=== PATIENT | female | born 1950 ===

== ENCOUNTER → 2016-12-30 | Outpatient (CLI) | payer OTHER ==
[~2016-12-30] MED LIST: ESCI10TA17 PO
== END | disposition home or self-care (01) ==
LOC: C.PATHSPEC 14:34
PROVIDERS: ATTEND Dentist Oral and Maxillofacial Pathology
DX: K11.6 Mucocele of salivary gland (principal); K11.8 Other diseases of salivary glands

== ENCOUNTER 2017-05-12 10:11 | Emergency (ER) | payer OTHER ==
[~2017-05-12] VITALS: Ht 157.5 cm; Wt 57.4 kg
[2017-05-12 10:14] VITALS: TEMP 36.7; Ht 157.5 cm; Wt 57.4 kg
[2017-05-12 10:45] LABS: URINE APPEARANCE CLOUDY (CLEAR); URINE BILIRUBIN NEG (NEG); URINE COLOR YELLOW; URINE EPITHELIAL CELL AUTO 0-5 /lpf (0-5); URINE NITRITE NEG (NEG); URINE PH >= 9.0 (4.5-7.5); URINE SPECIFIC GRAVITY 1.016 (1.000-1.030); UROBILINOGEN NEG (NEG)
[2017-05-12 10:45] LABS: BASO % 0.5 %; BASO ABS # 0.02 K/uL (0-0.2); COMPLETE YES; EOS % 1.4 %; HEMATOCRIT 41.7 % (37-47); LYMPH % 43.2 %; LYMPH ABS # 1.84 K/uL (1.2-3.4); MEAN CELL VOLUME 85.6 fL (80-100); MEAN CORPUSCULAR HEMOGLOBIN 29.8 pg (25-34); MEAN CORPUSCULAR HGB CONC 34.8 g/dl (32-36); MEAN PLATELET VOLUME 9.8 fL (7.4-10.4); MONO % 4.2 %; NEUT % 50.7 %; PLATELET COUNT 183 K/uL (130-400); RED BLOOD COUNT 4.87 M/uL (4.2-5.4); WHITE BLOOD COUNT 4.26 K/uL (4.8-10.8)
[2017-05-12 10:49] LABS: MANUAL MICROSCOPIC REQUIRED? NO; REVIEW REQ? NO
[2017-05-12 11:05] LABS: ALT/SGPT 25 U/L (12-78); AST/SGOT 19 U/L (15-37); BLOOD UREA NITROGEN 11 mg/dl (7-18); BUN/CREATININE RATIO 21.2 (10-20); CALCIUM 9.1 mg/dl (8.5-10.1); CARBON DIOXIDE 28 mmol/L (21-32); CHLORIDE 103 mmol/L (98-107); CREATININE 0.51 mg/dl (0.60-1.20); GLUCOSE 98 mg/dl (70-99); POTASSIUM 3.7 mmol/L (3.5-5.1); SODIUM 139 mmol/L (136-145)
[2017-05-12 11:08] LABS: ALKALINE PHOSPHATASE 90 U/L (45-117)
--- NOTE | 2017-05-12 11:35 | DIAGNOSTIC IMAGING REPORT ---
Right upper quadrant ultrasound GALLBLADDER-ABD LIMITED CLINICAL HISTORY: rug eval for gallstones pain. Nausea. TECHNIQUE: Ultrasound COMPARISON STUDY: 01/10/2016 FINDINGS: Normal study. Gallbladder is normal. Common bile that measures 5 mm. Liver pancreas and right kidney are unremarkable. No evidence for hydronephrosis. IMPRESSION: Normal study. No change from the prior exam. Electronically signed by: Guillermo Sanders M.D. 05/12/2017 11:33 AM Dictated Date/Time: 05/12/2017 11:31 AM
[2017-05-12] MEDS ORDERED: ESCI10TA17 PO (11:42)
[2017-05-12] MEDS ORDERED: SODIUM CHLORIDE 0.9% 500ML 500 ML IV STA (11:50)
[2017-05-12] MEDS ORDERED: ONDANSETRON INJ 2 MG/ML 2 ML VIAL IV STA (11:50)
[2017-05-12] MEDS ORDERED: KETOROLAC TROMETHAMINE 30 MG/ML VIAL IV STA (11:53)
--- NOTE | 2017-05-12 12:28 | DIAGNOSTIC IMAGING REPORT ---
ABDOMEN AND PELVIS CT WITHOUT CONTRAST CT DOSE: 555.29 mGycm HISTORY: Flank pain right flan k pain eval for stone TECHNIQUE: Multiaxial CT images of the abdomen and pelvis were performed without the use of intravenous and oral contrast according to the standard department stone protocol. COMPARISON STUDY: None. FINDINGS: Minimal dependent basilar atelectasis. Liver is unremarkable in generalized configuration. Possible small right hepatic cyst. Left kidney demonstrates a 6 mm nonobstructing calcification centrally. There is no evidence for left-sided hydronephrosis. Right kidney is negative for hydronephrosis. No evidence for an obstructing urinary tract calculus. The appendix contains an appendicolith but shows no inflammatory change. Bowel pattern is nonobstructive. IMPRESSION: 1. Nonobstructing left renal calcification. 2. No evidence for an obstructing urinary tract calculus. 3. Nonobstructive bowel pattern. 4. No acute process of the appendix. Electronically signed by: Guillermo Sanders M.D. 05/12/2017 12:26 PM Dictated Date/Time: 05/12/2017 12:19 PM
[2017-05-12 12:55] VITALS: BP 134/76; PULSE 72; O2SAT 98
--- NOTE | 2017-05-12 17:38 | EMERGENCY ROOM VISIT NOTE ---
History Report prepared by Jessica: Nuvia Gtz Under the Supervision of: Dr. Puma Etienne M.D. First contact with patient: 10:16 Chief Complaint: ABDOMINAL PAIN Stated Complaint: ABDOMINAL PAIN History of Present Illness The patient is a 66 year old female who presents to the Emergency Room with complaints of worsening upper abdominal pain beginning 2 weeks prior to arrival. She describes the pain as a a sharp cramping sensation. The patient states that she has been experiencing similar abdominal pain intermittently for 8 years now. She notes her pain has not been this severe in the past. 2 days ago she saw her PCP and was told she may have IBS. No testing was done. The patient was started on Lexapro by her PCP. The patient notes she is experiencing nausea. She states she feels constipated but notes her last normal bowel movement was yesterday. The patient states she feels bloated after eating. June of last year the patient had a endoscopy done due to having similar abdominal pain. Her results were normal. She states her gall bladder was not looked at. The patient has no history of abdominal surgery. She denies bloody or black stools, urinary burning or frequency, or blood in the urine. 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 Review of Systems See HPI for pertinent positives & negatives. A total of 10 systems reviewed and were otherwise negative. Past Medical & Surgical Medical Problems: (1) Abdominal pain Family History Patient reports no known family medical history. Social History Smoking Status: Never Smoker Smokeless Tobacco Use: No Marital Status: Housing Status: lives alone Current/Historical Medications Scheduled Escitalopram (Lexapro), 10 MG PO DAILY Allergies Coded Allergies: Aspirin (Unverified Adverse Reaction, Severe, STOMACH PAIN, 05/12/17) Physical Exam Vital Signs Date Time Temp Pulse Resp B/P (MAP) Pulse Ox O2 Delivery O2 Flow Rate FiO2 05/12/17 12:55 72 18 134/76 98 Room Air 05/12/17 11:39 84 18 136/72 96 Room Air 05/12/17 10:14 36.7 97 18 144/87 96 Room Air Physical Exam Constitutional: Vital signs reviewed. Eyes: Pupils are equal round reactive to light. Conjunctiva are noninjected. ENT: Pharynx is clear without erythema or exudate. Mucous membranes are moist. Neck supple without meningeal signs. Respiratory: Clear to auscultation bilaterally. Breath sounds are equal bilaterally. Cardiovascular: Regular rate and rhythm. No rubs or gallops. GI: Soft, nondistended, right upper quadrant tenderness. No Padilla sign. Bowel sounds are present. Musculoskeletal: No peripheral edema. No lower extremity tenderness. Integumentary: No cyanosis. Neurological: The patient is awake and alert. No focal deficits. Psychiatric: Normal affect. Medical Decision & Procedures ER Provider Diagnostic Interpretation: Radiology results as stated below per my review and the radiologist's interpretation: Right upper quadrant ultrasound GALLBLADDER-ABD LIMITED CLINICAL HISTORY: rug eval for gallstones pain. Nausea. TECHNIQUE: Ultrasound COMPARISON STUDY: 01/10/2016 FINDINGS: Normal study. Gallbladder is normal. Common bile that measures 5 mm. Liver pancreas and right kidney are unremarkable. No evidence for hydronephrosis. IMPRESSION: Normal study. No change from the prior exam. Electronically signed by: Guillermo Sanders M.D. 05/12/2017 11:33 AM Dictated Date/Time: 05/12/2017 11:31 AM ABDOMEN AND PELVIS CT WITHOUT CONTRAST CT DOSE: 555.29 mGycm HISTORY: Flank pain right flan k pain eval for stone TECHNIQUE: Multiaxial CT images of the abdomen and pelvis were performed without the use of intravenous and oral contrast according to the standard department stone protocol. COMPARISON STUDY: None. FINDINGS: Minimal dependent basilar atelectasis. Liver is unremarkable in generalized configuration. Possible small right hepatic cyst. Left kidney demonstrates a 6 mm nonobstructing calcification centrally. There is no evidence for left-sided hydronephrosis. Right kidney is negative for hydronephrosis. No evidence for an obstructing urinary tract calculus. The appendix contains an appendicolith but shows no inflammatory change. Bowel pattern is nonobstructive. IMPRESSION: 1. Nonobstructing left renal calcification. 2. No evidence for an obstructing urinary tract calculus. 3. Nonobstructive bowel pattern. 4. No acute process of the appendix. Electronically signed by: Guillermo Sanders M.D. 05/12/2017 12:26 PM Dictated Date/Time: 05/12/2017 12:19 PM Laboratory Results 05/12/17 10:30 Red Blood Count 4.87, Mean Corpuscular Volume 85.6, Mean Corpuscular Hemoglobin 29.8, Mean Corpuscular Hemoglobin Concent 34.8, Mean Platelet Volume 9.8, Neutrophils (%) (Auto) 50.7, Lymphocytes (%) (Auto) 43.2, Monocytes (%) (Auto) 4.2, Eosinophils (%) (Auto) 1.4, Basophils (%) (Auto) 0.5, Neutrophils # (Auto) 2.16, Lymphocytes # (Auto) 1.84, Monocytes # (Auto) 0.18, Eosinophils # (Auto) 0.06, Basophils # (Auto) 0.02 05/12/17 10:30 Test 05/12/17 10:20 05/12/17 10:30 Urine Color YELLOW Urine Appearance CLOUDY (CLEAR) Urine pH >= 9.0 (4.5-7.5) Urine Specific [place] 1.016 (1.000-1.030) Urine Protein NEG (NEG) Urine Glucose (UA) NEG (NEG) Urine Ketones NEG (NEG) Urine Occult Blood NEG (NEG) Urine Nitrite NEG (NEG) Urine Bilirubin NEG (NEG) Urine Urobilinogen NEG (NEG) Urine Leukocyte Esterase NEG (NEG) Urine WBC (Auto) 0 /hpf (0-5) Urine RBC (Auto) 0-4 /hpf (0-4) Urine Hyaline Casts (Auto) 0 /lpf (0-5) Urine Epithelial Cells (Auto) 0-5 /lpf (0-5) Urine Bacteria (Auto) NEG (NEG) White Blood Count 4.26 K/uL (4.8-10.8) Red Blood Count 4.87 M/uL (4.2-5.4) Hemoglobin 14.5 g/dL (12.0-16.0) Hematocrit 41.7 % (37-47) Mean Corpuscular Volume 85.6 fL (80-100) Mean Corpuscular Hemoglobin 29.8 pg (25-34) Mean Corpuscular Hemoglobin Concent 34.8 g/dl (32-36) Platelet Count 183 K/uL (130-400) Mean Platelet Volume 9.8 fL (7.4-10.4) Neutrophils (%) (Auto) 50.7 % Lymphocytes (%) (Auto) 43.2 % Monocytes (%) (Auto) 4.2 % Eosinophils (%) (Auto) 1.4 % Basophils (%) (Auto) 0.5 % Neutrophils # (Auto) 2.16 K/uL (1.4-6.5) Lymphocytes # (Auto) 1.84 K/uL (1.2-3.4) Monocytes # (Auto) 0.18 K/uL (0.11-0.59) Eosinophils # (Auto) 0.06 K/uL (0-0.5) Basophils # (Auto) 0.02 K/uL (0-0.2) RDW Standard Deviation 42.0 fL (36.4-46.3) RDW Coefficient of Variation 13.4 % (11.5-14.5) Immature Granulocyte % (Auto) 0.0 % Immature Granulocyte # (Auto) 0.00 K/uL (0.00-0.02) Anion Gap 8.0 mmol/L (3-11) Est Creatinine Clear Calc Drug Dose 88.2 ml/min Estimated GFR () 117.8 Estimated GFR (Non- 101.6 BUN/Creatinine Ratio 21.2 (10-20) Calcium Level 9.1 mg/dl (8.5-10.1) Total Bilirubin 0.6 mg/dl (0.2-1) Direct Bilirubin < 0.1 mg/dl (0-0.2) Aspartate Amino Transf (AST/SGOT) 19 U/L (15-37) Alanine Aminotransferase (ALT/SGPT) 25 U/L (12-78) Alkaline Phosphatase 90 U/L (45-117) Total Protein 7.1 gm/dl (6.4-8.2) Albumin 3.9 gm/dl (3.4-5.0) Lipase 129 U/L (73-393) Laboratory results as reviewed by me. Medications Administered Medications (Trade) Dose Ordered Sig/Castillo Route Start Time Stop Time Status Last Admin Dose Admin Sodium Chloride 500 ml @ 999 mls/hr Q31M STAT IV 05/12/17 11:50 05/12/17 12:20 DC 05/12/17 12:06 999 MLS/HR Ondansetron HCl (Zofran Inj) 4 mg NOW STAT IV 05/12/17 11:50 05/12/17 11:52 DC 05/12/17 12:06 4 MG Ketorolac Tromethamine (Toradol Inj) 10 mg NOW STAT IV 05/12/17 11:53 05/12/17 11:54 DC 05/12/17 12:07 10 MG ECG Indication: abdominal pain Rate (beats per minute): 83 Rhythm: normal sinus Findings: no acute ischemic change, no ectopy ED Course 1017: The patient was evaluated in room A3. A complete history and physical exam was performed. 1150: Zofran Inj 4 mg IV, Sodium Chloride 500 ml @ 999 mls/hr IV, Toradol Inj 10 mg IV. 1153: I discussed test results with the patient. She has agreed to a CT scan. 1244: I discussed test results with the patient. She will follow up with her GI physician. 1247: Upon reevaluation, the patient appeared to have improvement of her symptoms. I discussed tonight's findings with her. She verbalized agreement of the treatment plan. She was discharged home. Medical Decision This is a 66-year-old female who presents with upper abdominal pain. Differential diagnosis includes cholelithiasis, peptic ulcer disease, cholecystitis, pancreatitis, kidney stone, irritable bowel syndrome. I did perform a limited focused review of portions of the patient's old chart on the electronic medical record. The patient has had no recent pertinent visits to this hospital. Medication Reconciliation: I attest that I have personally reviewed the patient' s current medication list. Blood Pressure Screening: Patient was found to have an elevated blood pressure and was referred to their primary doctor for recheck and further treatment. I did evaluate the patient as noted above. The patient has been having similar pain for 8 years intermittently. She states it got worse over the past 2 weeks. She was placed on an antidepressant by her doctor who diagnosed her with IBS. IV access was established. I did order and personally review the patient's 12-lead EKG as described above. There were no acute ischemic changes. I did order and review the patient's blood work as noted in the electronic medical record. LFTs and lipase are unremarkable. Her white blood cell count is not elevated. Urinalysis is also unremarkable. I did order a ultrasound of the gallbladder which showed no evidence of disease. I did order a CT of the abdomen and pelvis. I did review the images myself as well as the radiology report as described above. There is no evidence of acute process on CT scan. I did discuss the test results with the patient. 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 She was discharged in good condition and given return instructions as outlined below. Impression Primary Impression: Right upper quadrant abdominal pain Scribe Attestation The scribe's documentation has been prepared under my direct and personally reviewed by me in its entirety. I confirm that the note above accurately reflects all work, treatment, procedures, and medical decision making performed by me. Departure Information Dispostion Home / Self-Care Referrals Mery Kraus M.D. (PCP) Forms HOME CARE DOCUMENTATION FORM, IMPORTANT VISIT INFORMATION Patient Instructions ED Abdominal Pain Unkn Cause, My [facility]
== END 2017-05-12 12:57 | disposition home or self-care (01) ==
LOC: C.EDB 10:11 → C.EDA 12:57
DX: R10.11 Right upper quadrant pain (principal); Z79.899 Other long term (current) drug therapy

== ENCOUNTER → 2017-07-23 | Outpatient (CLI) | payer OTHER | END | disposition home or self-care (01) | LOC: C.PAPS 11:33 | PROVIDERS: ATTEND Obstetrics & Gynecology | DX: Z12.4 Encounter for screening for malignant neoplasm of cervix (principal) ==